=== PATIENT | male | born 1945 | race Caucasian/White ===

== ENCOUNTER 2018-01-03 05:26 | Day surgery (SDC) | payer OTHER ==
[~2018-01-03] VITALS: Ht 177.8 cm; Wt 108.9 kg
--- NOTE | ~2018-01-03 | O ---
[facility] [place] [address] OPERATIVE REPORT Name: JEAN-PIERRE MCHUGH Room #: [facility].#: [id number] Admission: 01/03/18 Attend Phys: Tam Xie MD Discharge: 01/03/18 Date of : 49 Report #: [id number] THIS REPORT FOR: //name// CC: Physician staff RAN Xie DATE OF SERVICE: 01/03/2018 SURGEON: Tam Xie MD FIRE MANAGEMENT SPECIALIST: None. PREOPERATIVE DIAGNOSIS: Bilateral lower lid ectropion. POSTOPERATIVE DIAGNOSIS: Bilateral lower lid ectropion. OPERATION PERFORMED: Bilateral lower lid ectropion repair. ANESTHESIA: Local with IV sedation. COMPLICATIONS: None. INDICATIONS FOR PROCEDURE: This patient has bilateral acquired lower lid ectropion with chronic tearing and discharge. The current procedures are undertaken in order to improve the patient's visual function, lacrimal outflow, and level of comfort. Informed consent was obtained to include but not limit to the risk of loss of vision, bleeding, infection, scarring, failure to improve the problem and need for further surgery. DESCRIPTION OF OPERATION: The patient was taken to the operating room where 2% Xylocaine with epinephrine mixed with equal parts of 0.75% Marcaine with Wydase was administered transcutaneously and transconjunctivally to each lower lid and lateral canthal area. The patient was then prepped and draped in the usual sterile fashion. A Korey clamp was then used to clamp the left lateral canthus following which a sharp canthotomy and cantholysis were performed. The tarsal strip was prepared laterally, removing the lash bearing portion of the redundant lid margin and the redundant tarsal plate. Hemostasis was achieved with a monopolar cautery, as it was throughout the case. The tarsal strip was then secured to the internal portion of the lateral orbital tubercle with two interrupted 5-0 Prolene sutures. The lateral canthal angle was sharply reformed as the subcutaneous structures and the skin were closed with multiple interrupted 6-0 plain gut sutures. [address] [address] OPERATIVE REPORT Name: JEAN-PIERRE MCHUGH Room #: [facility].Parish.#: [id number] Admission: 01/03/18 Attend Phys: Tam Xie MD Discharge: 01/03/18 Date of : 49 Report #: [id number] Attention was then turned to the right side where the same procedure was performed. The wounds were cleaned and dressed with ophthalmic antibiotic ointment. The patient was then transported to the recovery area, having tolerated the procedure well with no anesthetic or operative complications being noted. <ELECTRONICALLY SIGNED> By: Tam Xie MD 01/07/18 0624 [id number] Tam Xie MD /nt
[~2018-01-03 05:26] MED LIST: ASPIR 8181 MG PO; ATORVASTATIN CA40 MG PO; CELEXA40 MG PO; LOSARTAN-HCTZ1 EACH PO; METFORMIN HCL500 MG PO; MIRAPEX1 MG PO; PRESERVISION A1 EAC2 PO; PUB MULTIVITAM1 EACH PO; WELLBUTRIN SR150 MG PO
[2018-01-03 07:15] VITALS: BP 116/69
== END 2018-01-03 08:46 | disposition home or self-care (01) ==
LOC: OR → TBA 05:27 → OR 08:46
DX: H02.105 Unspecified ectropion of left lower eyelid (principal); H02.102 Unspecified ectropion of right lower eyelid; I10 Essential (primary) hypertension; E11.9 Type 2 diabetes mellitus without complications; E78.00 Pure hypercholesterolemia, unspecified; G47.33 Obstructive sleep apnea (adult) (pediatric); F32.9 Major depressive disorder, single episode, unspecified; Z87.891 Personal history of nicotine dependence; Z85.46 Personal history of malignant neoplasm of prostate; Z85.828 Personal history of other malignant neoplasm of skin; Z87.448 Personal history of other diseases of urinary system; Z79.899 Other long term (current) drug therapy; Z79.82 Long term (current) use of aspirin
CPT/HCPCS: 50010; 50101; 50386; 50398; 51636; 56527; 56531; 62110; 62850; 70005

== ENCOUNTER → 2018-02-07 | Day surgery (SDC) | payer OTHER ==
[~2018-02-07] VITALS: Ht 177.8 cm; Wt 108.9 kg
--- NOTE | ~2018-02-07 | O ---
[facility] [place] [address] OPERATIVE REPORT Name: JEAN-PIERRE MCHUGH Room #: [facility].#: [id number] Admission: 02/07/18 Attend Phys: Tam Xie MD Discharge: Date of : 49 Report #: [id number] THIS REPORT FOR: //name// CC: Physician staff RAN Xie DATE OF SERVICE: 02/07/2018 SURGEON: Tam Xie MD CUSTOMER EXPERIENCE RETAIL CLERK: None. PREOPERATIVE DIAGNOSIS: Bilateral upper lid dermatochalasia with superior visual field defect. POSTOPERATIVE DIAGNOSIS: Bilateral upper lid dermatochalasia with superior visual field defect. OPERATION PERFORMED: Bilateral upper lid functional blepharoplasty. ANESTHESIA: Local with IV sedation. COMPLICATIONS: None. INDICATIONS FOR SURGERY: This patient has acquired upper lid dermatochalasia with superior visual field loss both eyes because of excessive upper lid tissues to include skin and fat. Visual field testing demonstrates dense superior visual defects. Retesting with the upper lid elevated shows an improvement in visual field loss of over 30% and in excess of 12 degrees. The current procedures are undertaken in order to improve the patient's visual function. Informed consent was obtained to include but not limited to the loss of vision, bleeding, infection, scarring, failure to improve the problem and need for further surgery. DESCRIPTION OF OPERATION: The patient was taken to the operating room, where 2% Xylocaine with epinephrine mixed with equal parts of 0.75% Marcaine with Wydase was administered transcutaneously to each upper lid. The patient was then prepped and draped in the usual sterile fashion and a skin-marking pen was then utilized to outline an upper lid crease that was symmetrical on each side. Graefe forceps were then used to quantitate the redundant upper lid skin and it was similarly outlined. The incisions were then made with Leandro scissors and a skin-muscle flap removed from each side with high-temp cautery. [address] [address] OPERATIVE REPORT Name: LOLITAJEAN-PIERRE Ovidio Room #: [facility].#: [id number] Admission: 02/07/18 Attend Phys: Tam Xie MD Discharge: Date of : 49 Report #: [id number] was achieved with the monopolar cautery as it was throughout the case. The orbital septum was then identified and the central and medial fat pads were inspected. The redundant soft tissue was then sculpted with the monopolar cautery. The upper lid crease was then reformed with tightening of the pretarsal orbicularis muscle. The upper lid crease was then further reformed with multiple interrupted 6-0 chromic sutures. The skin was then closed with a running 6-0 plain gut suture. The wound was then cleaned and dressed with ophthalmic antibiotic ointment and a nonstick dressing. The patient was transported to the recovery area, where cold compresses were applied, having tolerated the procedure well with no anesthetic or operative complications being noted. By: [id number] Tam Xie MD /nt
[2018-02-07 08:00] VITALS: BP 142/64
== END | disposition home or self-care (01) ==
LOC: OR 05:28
DX: H02.834 Dermatochalasis of left upper eyelid (principal); H02.831 Dermatochalasis of right upper eyelid; H53.462 Homonymous bilateral field defects, left side; H53.461 Homonymous bilateral field defects, right side; I10 Essential (primary) hypertension; E11.9 Type 2 diabetes mellitus without complications; E78.00 Pure hypercholesterolemia, unspecified; G47.33 Obstructive sleep apnea (adult) (pediatric); F32.9 Major depressive disorder, single episode, unspecified; Z87.891 Personal history of nicotine dependence; Z85.828 Personal history of other malignant neoplasm of skin; Z85.46 Personal history of malignant neoplasm of prostate; Z98.890 Other specified postprocedural states; Z96.611 Presence of right artificial shoulder joint; Z79.82 Long term (current) use of aspirin; Z79.899 Other long term (current) drug therapy
CPT/HCPCS: 50010; 50101; 50386; 50398; 51636; 56531; 62110; 62850; 70005